=== PATIENT | female | born 1955 ===

== ENCOUNTER 2022-06-09 10:03 | Outpatient (CLI) | payer OTHER ==
[2022-06-09] MEDS ORDERED: PLETAL PO (13:09)
[2022-06-09] MEDS ORDERED: ATORVAST PO (13:10)
[2022-06-09] MEDS ORDERED: LIPIT PO (13:10)
[2022-06-09] MEDS ORDERED: GLIMEPIRIDE4 MG PO (13:10)
[2022-06-09] MEDS ORDERED: IRON PO (13:11)
[2022-06-09] MEDS ORDERED: HUMLOG (13:12)
[2022-06-09] MEDS ORDERED: LANTUS SOL100 UNIT/1 (13:12)
== END 2022-06-09 10:43 | disposition home or self-care (01) ==
LOC: RAD 10:03
PROVIDERS: ATTEND Colon & Rectal Surgery
DX: Z01.811 Encounter for preprocedural respiratory examination (principal); K59.00 Constipation, unspecified; N39.0 Urinary tract infection, site not specified; K62.5 Hemorrhage of anus and rectum; D59.8 Other acquired hemolytic anemias; Z11.59 Encounter for screening for other viral diseases; Z20.828 Contact with and (suspected) exposure to other viral communicable diseases; D68.9 Coagulation defect, unspecified; C18.2 Malignant neoplasm of ascending colon

== ENCOUNTER 2022-06-13 09:40 | Day surgery (SDC) | payer OTHER ==
[~2022-06-13] VITALS: Ht 160 cm; Wt 29.0 kg
[~2022-06-13 09:40] MED LIST: ATORVAST PO; GLIMEPIRIDE4 MG PO; HUMLOG; IRON PO; LANTUS SOL100 UNIT/1; LIPIT PO; PLETAL PO
[2022-06-13] MEDS ORDERED: FERROUS SULFAT325 MG (10:32)
[2022-06-13] MEDS ORDERED: CILOSTAZOL50 MG (10:32)
[2022-06-13] MEDS ORDERED: ATORVASTATIN CA20 MG (10:32)
[2022-06-13] MEDS ORDERED: OMEPRAZOLE20 MG (10:32)
[2022-06-13] MEDS ORDERED: FOLIC ACID1 MG (10:32)
[2022-06-13] MEDS ORDERED: LISINOPRIL2.5 MG (10:33)
[2022-06-13] MEDS ORDERED: ST. JOSEPH ASPI81 M2 (10:33)
[2022-06-13] MEDS ORDERED: GABAPENTIN600 MG (10:33)
[2022-06-13] MEDS ORDERED: FAMOTIDINE40 MG (10:33)
[2022-06-13] MEDS ORDERED: BACLOFEN10 MG (10:33)
[2022-06-13] MEDS ORDERED: CLOPIDOGREL BIS75 MG (10:33)
== END 2022-06-13 16:30 | disposition home or self-care (01) ==
LOC: CIR.AMB 09:40 → EDSTATUS 12:15 → SURG 12:15 → CIR.AMB 16:30 → O/R 16:30
PROVIDERS: ATTEND Colon & Rectal Surgery
DX: C18.2 Malignant neoplasm of ascending colon (principal); R59.0 Localized enlarged lymph nodes; Z20.822 Contact with and (suspected) exposure to COVID-19

== ENCOUNTER 2022-06-17 06:00 | Inpatient (IN) | payer OTHER ==
[~2022-06-17] VITALS: Ht 160 cm; Wt 57.6 kg
[~2022-06-17 06:00] MED LIST changes: +ATORVASTATIN CA20 MG; +BACLOFEN10 MG; +CILOSTAZOL50 MG; +CLOPIDOGREL BIS75 MG; +FAMOTIDINE40 MG; +FERROUS SULFAT325 MG; +FOLIC ACID1 MG; +GABAPENTIN600 MG; +LISINOPRIL2.5 MG; +OMEPRAZOLE20 MG; +ST. JOSEPH ASPI81 M2
[2022-06-17] MEDS ORDERED: ABANEU-SL TABL1 EACH (08:03)
== END 2022-06-19 21:00 | disposition home or self-care (01) | DRG 331 ==
LOC: SURH 06:00 → O/R 07:49 → SURH 11:32
PROVIDERS: ADMIT Colon & Rectal Surgery; ATTEND Colon & Rectal Surgery
PROC: 07BB4ZZ Excision of Mesenteric Lymphatic, Percutaneous Endoscopic Approach (ICD-10-PCS; 2022-06-17)
PROC: 3E0F7SF Introduction of Other Gas into Respiratory Tract, Via Natural or Artificial Opening (ICD-10-PCS; 2022-06-17)
PROC: 0DTF4ZZ Resection of Right Large Intestine, Percutaneous Endoscopic Approach (ICD-10-PCS; principal; 2022-06-17 06:00)
DX: C18.2 Malignant neoplasm of ascending colon (principal); R59.0 Localized enlarged lymph nodes; I10 Essential (primary) hypertension; E11.9 Type 2 diabetes mellitus without complications; E78.5 Hyperlipidemia, unspecified; I73.9 Peripheral vascular disease, unspecified; Z79.4 Long term (current) use of insulin